=== PATIENT | female | born 1995 | race Two or more races ===

== ENCOUNTER 2022-12-13 03:20 | Emergency (ER) | payer SELFPAY ==
[~2022-12-13] VITALS: Ht 154.9 cm; Wt 73.0 kg
[2022-12-13 04:41] LABS: Basophils # (auto) 0.1 10 ^3/uL (0-0.2); Basophils % (auto) 0.8 % (0.0-2.0); Eosinophils # (auto) 0.3 10 ^3/uL (0-0.8); Eosinophils % (auto) 4.3 % (0.0-7.0); Hematocrit 39.4 % (36.0-46.0); Hemoglobin 13.6 g/dL (12.2-16.2); Lymphocytes % (auto) 27.5 % (10.0-50.0); Mean Corpuscular Hemoglobin 28.7 pg (28.0-32.0); Mean Corpuscular Hgb Conc. 34.6 g/dL (32.0-36.0); Monocytes # (auto) 0.5 10 ^3/uL (0-1.3); Monocytes % (auto) 6.4 % (0.0-12.0); Neutrophils # (auto) 4.5 10 ^3/uL (1.6-8.6); Nucleated Red Blood Cells % 0.1 %; Red Blood Cells 4.75 10^6/uL (4.0-5.20); Red Cell Distribution Width 13.3 % (11.8-14.3); White Blood Cell 7.3 10^3/uL (4.4-10.8)
[2022-12-13 04:51] LABS: Albumin 3.6 g/dL (3.4-5.0); Calcium 8.6 mg/dL (8.5-10.1); Potassium 3.9 mmol/L (3.5-5.1)
[2022-12-13 04:55] LABS: Bilirubin, Total 0.2 mg/dL (0.2-1.0); Total Protein 7.4 g/dL (6.4-8.2)
[2022-12-13 06:44] LABS: Urine Bacteria NONE SEEN /hpf (None Seen); Urine Blood Negative /uL (Negative); Urine Specific Gravity 1.022 (1.001-1.035); Urine WBC <1 /hpf (0 - 5)
[2022-12-13 07:57] VITALS: BP 110/73
== END 2022-12-13 08:00 | disposition home or self-care (01) ==
LOC: ER 03:20
DX: R10.11 Right upper quadrant pain (principal); R10.2 Pelvic and perineal pain
CPT/HCPCS: 36415; 74176; 80053; 81001; 83690; 84702; 85025

== ENCOUNTER 2024-05-22 13:36 | Emergency (ER) | payer MEDICAID ==
[~2024-05-22] VITALS: Ht 162.6 cm; Wt 72.4 kg
[2024-05-22 14:00] VITALS: BP 113/76; PULSE 78; RESP 18; O2SAT 97
[2024-05-22] MEDS ORDERED: NITR-87 PO (16:46)
[2024-05-22] MEDS: ONDANSETRON ODT 4 MG TAB PO ONE (18:46)
[2024-05-22] MEDS: cefTRIAXone SOD 1,000 MG VL IM ONE (18:46)
== END 2024-05-22 18:51 | disposition home or self-care (01) ==
LOC: ER 13:36
DX: N39.0 Urinary tract infection, site not specified (principal)
CPT/HCPCS: 96372; 99283; J0696; Q0162

== ENCOUNTER 2024-05-26 08:30 | Inpatient (IN) | payer MEDICAID ==
[~2024-05-26] VITALS: Ht 165.1 cm; Wt 75.2 kg
[~2024-05-26 08:30] MED LIST: NITR-87 PO
[2024-05-26 09:10] LABS: Basophils # (auto) 0.1 10 ^3/uL (0-0.2); Basophils % (auto) 0.8 % (0.0-2.0); Eosinophils # (auto) 0.3 10 ^3/uL (0-0.8); Eosinophils % (auto) 3.6 % (0.0-7.0); Hematocrit 42.2 % (36.0-46.0); Hemoglobin 14.1 g/dL (12.2-16.2); Lymphocytes # (auto) 1.9 10 ^3/uL (0.4-5.4); Lymphocytes % (auto) 20.9 % (10.0-50.0); Mean Corpuscular Hemoglobin 28.3 pg (28.0-32.0); Mean Corpuscular Hgb Conc. 33.5 g/dL (32.0-36.0); Mean Corpuscular Volume 84.6 fL (80.0-100.0); Monocytes # (auto) 0.4 10 ^3/uL (0-1.3); Monocytes % (auto) 4.6 % (0.0-12.0); Neutrophils # (auto) 6.5 10 ^3/uL (1.6-8.6); Neutrophils % (auto) 70.1 % (37.0-80.0); Platelet Count (auto) 228 10^3/uL (140-450); Red Blood Cells 4.99 10^6/uL (4.0-5.20); Red Cell Distribution Width 14.9 % (11.8-14.3); White Blood Cell 9.2 10^3/uL (4.4-10.8)
[2024-05-26 09:20] LABS: Chloride 107 mmol/L (98-107); Potassium 4.1 mmol/L (3.5-5.1); Sodium 140 mmol/L (136-145)
[2024-05-26 09:21] LABS: Anion Gap 8 (5-15); Calcium 9.6 mg/dL (8.7-10.4); Carbon Dioxide 25 mmol/L (20-31)
[2024-05-26 09:26] LABS: Blood Urea Nitrogen 8 mg/dL (9-23); Glucose 125 mg/dL (74-106); Lipase 43 U/L (12-53)
[2024-05-26 11:25] LABS: Urine Bacteria FEW /hpf (None Seen); Urine Blood Negative /uL (Negative); Urine Clarity Clear (Clear); Urine Color Light-Yellow (Yellow); Urine Protein, UAD Negative (Negative); Urine Specific Gravity 1.019 (1.001-1.035); Urine Urobilinogen Normal (Negative); Urine WBC 1 /hpf (0 - 5); Urine pH 5.5 (5.0-9.0)
[2024-05-26] MEDS: cefTRIAXone 1GM/50ML D5W 50 ML IV ONE (13:15)
[2024-05-26] MEDS: MORPHINE SULFATE 4 MG/ML SYR/VIAL IV ONE (13:15)
[2024-05-26] MEDS: ONDANSETRON HCL 4 MG/2 ML VIAL IV ONE (13:15)
[2024-05-26] MEDS ORDERED: MORPHINE SULFATE INJ 2 MG/ml SYRG IV PRN (13:45)
[2024-05-26] MEDS ORDERED: KETOROLAC TROMETH 30 MG/ML 1ML VIAL IV PRN (13:45)
[2024-05-26] MEDS ORDERED: SODIUM CHLORIDE 0.9% 1,000 ML IV SCH ×2 (13:45→14:00)
[2024-05-26 13:56] VITALS: BP 105/78; PULSE 68; RESP 16; TEMP 98.2; O2SAT 98
[2024-05-26] MEDS: D5W/SOD CHL 0.45%/KCL 20MEQ 1,000 ML IV ONE (14:15)
[2024-05-26 14:40] LABS: Alanine Aminotransferase 237 U/L (7-40); Alkaline Phosphatase 170 U/L (46-116); Anion Gap 9 (5-15); Aspartate Aminotransferase 59 U/L (13-40); BUN/Creatinine Ratio 11.3 (10.0-20.0); Blood Urea Nitrogen 8 mg/dL (9-23); Calcium 9.8 mg/dL (8.7-10.4); Carbon Dioxide 25 mmol/L (20-31); Chloride 107 mmol/L (98-107); Glucose 104 mg/dL (74-106); Potassium 4.5 mmol/L (3.5-5.1); Sodium 141 mmol/L (136-145)
[2024-05-26 14:41] LABS: Albumin 5.3 g/dL (3.2-4.8); Bilirubin, Total 0.5 mg/dL (0.2-1.0)
[2024-05-26 14:43] LABS: INR 0.95 (0.9-1.15); Prothrombin Time 10.1 sec (9.3-11.8)
[2024-05-26 15:36] VITALS: BP 105/78; PULSE 68; RESP 16; RESP 18; TEMP 98.2; O2SAT 98
[2024-05-26 17:00] VITALS: BP 100/56; PULSE 62; RESP 16; TEMP 98; O2SAT 98
[2024-05-26 21:22] VITALS: BP 102/53; PULSE 68; RESP 14; TEMP 98.2; O2SAT 98
[2024-05-26] MEDS: ceFAZolin 1GM/50ML 50 ML IV SCH (21:36)
[2024-05-27 00:21] VITALS: BP 99/51; PULSE 88; RESP 14; TEMP 98.3; O2SAT 97
[2024-05-27 04:48] VITALS: BP 96/47; PULSE 64; RESP 13; TEMP 97.6; O2SAT 64
[2024-05-27 06:23] LABS: Anion Gap 8 (5-15); Carbon Dioxide 24 mmol/L (20-31); Chloride 108 mmol/L (98-107); Potassium 3.6 mmol/L (3.5-5.1); Sodium 140 mmol/L (136-145)
[2024-05-27 06:24] LABS: Calcium 9.4 mg/dL (8.7-10.4)
[2024-05-27 06:29] LABS: Blood Urea Nitrogen 8 mg/dL (9-23); Glucose 98 mg/dL (74-106)
[2024-05-27 06:39] LABS: Basophils # (auto) 0 10 ^3/uL (0-0.2); Basophils % (auto) 0.8 % (0.0-2.0); Eosinophils # (auto) 0.2 10 ^3/uL (0-0.8); Eosinophils % (auto) 3.8 % (0.0-7.0); Hemoglobin 12.8 g/dL (12.2-16.2); Lymphocytes # (auto) 1.9 10 ^3/uL (0.4-5.4); Lymphocytes % (auto) 29.8 % (10.0-50.0); Mean Corpuscular Hemoglobin 28.2 pg (28.0-32.0); Mean Corpuscular Hgb Conc. 33.6 g/dL (32.0-36.0); Mean Corpuscular Volume 83.9 fL (80.0-100.0); Monocytes # (auto) 0.4 10 ^3/uL (0-1.3); Monocytes % (auto) 6.7 % (0.0-12.0); Neutrophils # (auto) 3.7 10 ^3/uL (1.6-8.6); Neutrophils % (auto) 58.9 % (37.0-80.0); Platelet Count (auto) 214 10^3/uL (140-450); Red Blood Cells 4.53 10^6/uL (4.0-5.20); White Blood Cell 6.3 10^3/uL (4.4-10.8)
[2024-05-27 09:00] VITALS: BP 91/43; PULSE 61; RESP 16; TEMP 97.9; O2SAT 97
[2024-05-27 13:00] VITALS: BP 109/57; PULSE 62; RESP 18; TEMP 97.9; O2SAT 97
[2024-05-27 16:42] VITALS: BP 110/64; PULSE 67; RESP 19; TEMP 98.4; O2SAT 97
[2024-05-27 21:00] VITALS: BP 107/56; PULSE 79; RESP 20; TEMP 98.6; O2SAT 96
[2024-05-28] VITALS (10 sets, daily range): BP systolic 91–125; BP diastolic 49–73; PULSE 63–89; RESP 14–20; TEMP 97.1–98.6; O2SAT 94–99
[2024-05-28 05:56] LABS: Basophils # (auto) 0.1 10 ^3/uL (0-0.2); Basophils % (auto) 0.8 % (0.0-2.0); Eosinophils # (auto) 0.2 10 ^3/uL (0-0.8); Eosinophils % (auto) 3.7 % (0.0-7.0); Hematocrit 39.1 % (36.0-46.0); Hemoglobin 13.4 g/dL (12.2-16.2); Lymphocytes # (auto) 1.9 10 ^3/uL (0.4-5.4); Lymphocytes % (auto) 30.1 % (10.0-50.0); Mean Corpuscular Hemoglobin 28.6 pg (28.0-32.0); Mean Corpuscular Hgb Conc. 34.1 g/dL (32.0-36.0); Mean Corpuscular Volume 83.7 fL (80.0-100.0); Monocytes # (auto) 0.4 10 ^3/uL (0-1.3); Monocytes % (auto) 5.7 % (0.0-12.0); Neutrophils # (auto) 3.8 10 ^3/uL (1.6-8.6); Neutrophils % (auto) 59.7 % (37.0-80.0); Nucleated Red Blood Cells % 0.1 %; Platelet Count (auto) 212 10^3/uL (140-450); Red Blood Cells 4.67 10^6/uL (4.0-5.20); Red Cell Distribution Width 14.7 % (11.8-14.3); White Blood Cell 6.3 10^3/uL (4.4-10.8)
[2024-05-28 05:58] LABS: Calcium 9.7 mg/dL (8.7-10.4); Chloride 106 mmol/L (98-107); Potassium 3.7 mmol/L (3.5-5.1); Sodium 140 mmol/L (136-145)
[2024-05-28 05:59] LABS: Anion Gap 11 (5-15); Carbon Dioxide 23 mmol/L (20-31)
[2024-05-28 06:04] LABS: BUN/Creatinine Ratio 16.2 (10.0-20.0); Blood Urea Nitrogen 12 mg/dL (9-23); Glucose 84 mg/dL (74-106)
[2024-05-28] MEDS: BUPIVACAINE HCL 0.25% P/F 10 ML VIAL ONE (08:32)
[2024-05-28] MEDS: LIDOCAINE W/ EPINEPHRINE 1% 20ML VIAL ONE (08:32)
[2024-05-28] MEDS ORDERED: NALOXONE HCL 0.4 MG/ML VIAL IV PRN (09:15)
[2024-05-28] MEDS ORDERED: MORPHINE SULFATE 4 MG/ML SYR/VIAL IV PRN ×2 (09:15)
[2024-05-28] MEDS: ONDANSETRON HCL 4 MG/2 ML VIAL IV ONE (09:15)
[2024-05-28] MEDS ORDERED: ePHEDrine SULFATE 50 MG/ML AMP IV PRN (09:15)
[2024-05-28] MEDS ORDERED: PROPOFOL 10 MG/ML 20 ML IV ONE (09:24)
[2024-05-28] MEDS ORDERED: ROCURONIUM 10MG/ML 10ML VIAL IV ONE (09:24)
[2024-05-28] MEDS ORDERED: MIDAZOLAM HCL 2MG/2ML 2ml VIAL (1mg/ml) ONE (09:46)
[2024-05-28] MEDS ORDERED: KETOROLAC TROMETH 30 MG/ML 1ML VIAL ONE (10:03)
[2024-05-28] MEDS ORDERED: HYDROmorphone HCL 2 MG/ML VL/or syr ONE (10:03)
[2024-05-28] MEDS ORDERED: ONDANSETRON HCL 4 MG/2 ML VIAL ONE (10:03)
[2024-05-28] MEDS ORDERED: METOCLOPRAMIDE HCL 5MG/ml INJ 2ml VIAL ONE (10:03)
[2024-05-28] MEDS ORDERED: fentaNYL CITRATE 5 ML ONE (10:43)
[2024-05-28] MEDS ORDERED: SUGAMMADEX 200mg/2ml Vial (100MG/ML) IV ONE (10:44)
[2024-05-28] MEDS ORDERED: HYDROmorphone HCL 2 MG/ML VL/or syr IV PRN (10:45)
[2024-05-28] MEDS ORDERED: ACETAMINOPHEN/CODEINE#3 (300/30mg) TAB PO PRN (10:45)
[2024-05-28] MEDS: metroNIDAZOLE 500MG/100ML 100 ML IV SCH (13:34)
[2024-05-28] MEDS: SOD CHL 0.45% WITH 20MEQ KCL 1,000 ML IV SCH (13:35)
[2024-05-28] MEDS: SODIUM CHLORIDE 0.9% 1,000 ML IV SCH ×2 (13:35→15:38)
[2024-05-28] MEDS: ONDANSETRON HCL 4 MG/2 ML VIAL IV PRN (14:32)
[2024-05-28] MEDS: MORPHINE SULFATE INJ 2 MG/ml SYRG IV PRN (14:32)
[2024-05-28] MEDS: ceFAZolin 2 GM/D5W50ml 50 ML IV SCH (15:13)
[2024-05-28] MEDS: LORazepam 2MG/ML-1ML VIAL IV PRN (15:38)
[2024-05-29] VITALS (7 sets, daily range): BP systolic 99–111; BP diastolic 47–63; PULSE 66–87; RESP 16–20; TEMP 36.6; O2SAT 94–98
[2024-05-29] MEDS: HYDROcodone-ACET 5/325MG TAB PO PRN (05:35)
[2024-05-29 07:32] LABS: Basophils # (auto) 0 10 ^3/uL (0-0.2); Basophils % (auto) 0.4 % (0.0-2.0); Eosinophils # (auto) 0.1 10 ^3/uL (0-0.8); Eosinophils % (auto) 0.8 % (0.0-7.0); Hematocrit 34.4 % (36.0-46.0); Hemoglobin 11.7 g/dL (12.2-16.2); Lymphocytes # (auto) 1.4 10 ^3/uL (0.4-5.4); Lymphocytes % (auto) 14.8 % (10.0-50.0); Mean Corpuscular Hemoglobin 28.5 pg (28.0-32.0); Mean Corpuscular Volume 83.9 fL (80.0-100.0); Monocytes # (auto) 0.7 10 ^3/uL (0-1.3); Monocytes % (auto) 6.8 % (0.0-12.0); Neutrophils # (auto) 7.5 10 ^3/uL (1.6-8.6); Neutrophils % (auto) 77.2 % (37.0-80.0); Platelet Count (auto) 195 10^3/uL (140-450); Red Cell Distribution Width 14.6 % (11.8-14.3); White Blood Cell 9.7 10^3/uL (4.4-10.8)
[2024-05-29] MEDS ORDERED: DOCU-94 PO (11:00)
[2024-05-29] MEDS ORDERED: ZOFR4T PO (11:00)
[2024-05-29] MEDS ORDERED: TRAM-626 PO (11:00)
[2024-05-29] MEDS ORDERED: CEPH500T PO (11:00)
[2024-05-29 12:40] LABS: Alanine Aminotransferase 151 U/L (7-40); Albumin 4.5 g/dL (3.2-4.8); Alkaline Phosphatase 167 U/L (46-116); Anion Gap 10 (5-15); Aspartate Aminotransferase 79 U/L (13-40); BUN/Creatinine Ratio 6.7 (10.0-20.0); Bilirubin, Total 0.4 mg/dL (0.2-1.0); Blood Urea Nitrogen 5 mg/dL (9-23); Calcium 9.2 mg/dL (8.7-10.4); Carbon Dioxide 21 mmol/L (20-31); Chloride 109 mmol/L (98-107); Glucose 120 mg/dL (74-106); Potassium 3.9 mmol/L (3.5-5.1); Sodium 140 mmol/L (136-145); Total Protein 6.9 g/dL (5.7-8.2)
== END 2024-05-29 19:10 | disposition home or self-care (01) | DRG 263 ==
LOC: ER 08:30 → OVERFLOW 13:56 → WEST WING 16:06
PROVIDERS: ADMIT Registered Nurse General Practice; ATTEND Internal Medicine
PROC: 0FT44ZZ Resection of Gallbladder, Percutaneous Endoscopic Approach (ICD-10-PCS; principal; 2024-05-28 09:48)
DX: K80.00 Calculus of gallbladder with acute cholecystitis without obstruction (principal); E66.9 Obesity, unspecified; K59.00 Constipation, unspecified; Z68.27 Body mass index [BMI] 27.0-27.9, adult; Z79.899 Other long term (current) drug therapy
CPT/HCPCS: 36415; 71045; 76705; 80048; 80053; 81001; 83690; 84702; 85025; 85610; 86850; 86900; 86901; G0378; J1885; J2250; J2405; J2704; J3490

== ENCOUNTER → 2024-06-12 | Outpatient (CLI) | payer MEDICAID ==
[~2024-06-12] MED LIST changes: +CEPH500T PO; +DOCU-94 PO; +TRAM-626 PO; +ZOFR4T PO
[2024-06-12 16:46] LABS: Alanine Aminotransferase 40 U/L (7-40); Triglycerides 266 mg/dL (< 150)
[2024-06-12 16:47] LABS: Aspartate Aminotransferase 19 U/L (13-40); Cholesterol 179 mg/dL (< 200); HDL Cholesterol 34 mg/dL (40-59); LDL Cholesterol 118 mg/dL (< 100)
== END | disposition home or self-care (01) ==
LOC: LAB 15:22
PROVIDERS: ATTEND Internal Medicine
DX: K76.0 Fatty (change of) liver, not elsewhere classified (principal); Z90.49 Acquired absence of other specified parts of digestive tract
CPT/HCPCS: 36415; 80061; 83036; 84439; 84443; 84450; 84460

== ENCOUNTER → 2024-06-15 | Outpatient (CLI) | payer MEDICAID ==
[2024-06-15 10:44] LABS: Basophils # (auto) 0.1 10 ^3/uL (0-0.2); Eosinophils # (auto) 0.7 10 ^3/uL (0-0.8); Hematocrit 39.8 % (36.0-46.0); Hemoglobin 13.5 g/dL (12.2-16.2); Lymphocytes # (auto) 1.8 10 ^3/uL (0.4-5.4); Lymphocytes % (auto) 21.3 % (10.0-50.0); Mean Corpuscular Hemoglobin 27.7 pg (28.0-32.0); Mean Corpuscular Hgb Conc. 33.9 g/dL (32.0-36.0); Mean Corpuscular Volume 81.8 fL (80.0-100.0); Monocytes # (auto) 0.5 10 ^3/uL (0-1.3); Monocytes % (auto) 5.6 % (0.0-12.0); Neutrophils # (auto) 5.2 10 ^3/uL (1.6-8.6); Neutrophils % (auto) 63.1 % (37.0-80.0); Nucleated Red Blood Cells % 0.1 %; Platelet Count (auto) 263 10^3/uL (140-450); Red Blood Cells 4.87 10^6/uL (4.0-5.20); Red Cell Distribution Width 14.2 % (11.8-14.3); White Blood Cell 8.3 10^3/uL (4.4-10.8)
[2024-06-15 11:32] LABS: Alanine Aminotransferase 42 U/L (7-40); Albumin 4.9 g/dL (3.2-4.8); Alkaline Phosphatase 111 U/L (46-116); Anion Gap 6 (5-15); Aspartate Aminotransferase 21 U/L (13-40); Bilirubin, Total 0.4 mg/dL (0.2-1.0); Blood Urea Nitrogen 9 mg/dL (9-23); Calcium 9.9 mg/dL (8.7-10.4); Carbon Dioxide 23 mmol/L (20-31); Chloride 110 mmol/L (98-107); Glucose 109 mg/dL (74-106); Potassium 4.1 mmol/L (3.5-5.1); Sodium 139 mmol/L (136-145); Total Protein 7.7 g/dL (5.7-8.2)
[2024-06-15 11:35] LABS: Free T4 (Free Thyroxine) 0.98 ng/dL (0.89-1.76); Thyroid Stimulating Hormone 2.57 uIU/mL (0.55-4.78)
[2024-06-15 11:36] LABS: Follicle Stimulating Hormone 5.02 IU/L (SEE BELOW)
[2024-06-15 11:37] LABS: Leuteinizing Hormone 4.6 IU/L; Prolactin 7.15 ng/mL (2.8-29.2)
[2024-06-15 11:38] LABS: Beta HCG, Quantitative 0.1 mIU/mL (1.5-4.2)
[2024-06-16 11:06] LABS: Estradiol 35.1 pg/mL (.)
[2024-06-20 20:06] LABS: Free Testosterone(Direct) 1.1 pg/mL (0.0-4.2)
== END | disposition home or self-care (01) ==
LOC: LAB 10:02
DX: K81.9 Cholecystitis, unspecified (principal); Z87.42 Personal history of other diseases of the female genital tract
CPT/HCPCS: 36415; 80053; 82670; 83001; 83002; 83036; 84146; 84402; 84403; 84439; 84443; 84702; 85025

== ENCOUNTER 2025-02-26 12:14 | Outpatient (CLI) | payer MEDICAID ==
[2025-02-26 12:34] LABS: Hemoglobin 14.7 g/dL (12.2-16.2)
[2025-02-26 12:39] LABS: Hematocrit 43.4 % (36.0-46.0); Mean Corpuscular Hemoglobin 27.9 pg (28.0-32.0); Mean Corpuscular Volume 82.5 fL (80.0-100.0); Nucleated Red Blood Cells % 0.1 %
[2025-02-26 13:22] LABS: Albumin 4.8 g/dL (3.2-4.8); Alkaline Phosphatase 107 U/L (46-116); Anion Gap 8 (5-15); BUN/Creatinine Ratio 9.9 (10.0-20.0); Calcium 10.0 mg/dL (8.7-10.4); Carbon Dioxide 27 mmol/L (20-31); Cholesterol 161 mg/dL (< 200); Glucose 101 mg/dL (74-106); Potassium 4.0 mmol/L (3.5-5.1); Sodium 142 mmol/L (136-145); Total Protein 7.3 g/dL (5.7-8.2)
[2025-02-26 13:23] LABS: Alanine Aminotransferase 72 U/L (7-40); Bilirubin, Total 0.5 mg/dL (0.2-1.0); Blood Urea Nitrogen 8 mg/dL (9-23); Chloride 107 mmol/L (98-107); HDL Cholesterol 26 mg/dL (40-59); Triglycerides 258 mg/dL (< 150)
[2025-02-26 13:35] LABS: Urine Protein, UAD Negative (Negative)
== END 2025-02-26 17:51 | disposition home or self-care (01) ==
LOC: LAB 12:14
PROVIDERS: ATTEND Internal Medicine
DX: K76.0 Fatty (change of) liver, not elsewhere classified (principal); R74.01 Elevation of levels of liver transaminase levels; R82.90 Unspecified abnormal findings in urine; Z00.01 Encounter for general adult medical examination with abnormal findings; Z83.3 Family history of diabetes mellitus
CPT/HCPCS: 36415; 80053; 80061; 81001; 83036; 84439; 84443; 85025

== ENCOUNTER 2025-03-05 09:52 | Outpatient (CLI) | payer MEDICAID ==
[2025-03-05 10:14] LABS: Hematocrit 41.5 % (36.0-46.0); Hemoglobin 13.9 g/dL (12.2-16.2); Mean Corpuscular Hemoglobin 27.9 pg (28.0-32.0); Mean Corpuscular Volume 82.9 fL (80.0-100.0); Nucleated Red Blood Cells % 0.1 %
== END 2025-03-05 17:00 | disposition home or self-care (01) ==
LOC: LAB 09:52
PROVIDERS: ATTEND Internal Medicine
DX: N39.0 Urinary tract infection, site not specified (principal); N92.0 Excessive and frequent menstruation with regular cycle
CPT/HCPCS: 36415; 85025; 87086

== ENCOUNTER 2025-03-12 09:47 | Outpatient (CLI) | payer MEDICAID ==
[2025-03-12 11:12] LABS: Beta HCG, Quantitative 0.4 mIU/mL (1.5-4.2)
[2025-03-12 11:13] LABS: Follicle Stimulating Hormone 5.51 IU/L (SEE BELOW)
[2025-03-12 11:16] LABS: Thyroid Stimulating Hormone 2.26 uIU/mL (0.55-4.78)
== END 2025-03-12 17:00 | disposition home or self-care (01) ==
LOC: LAB 09:47
PROVIDERS: ATTEND Obstetrics & Gynecology
DX: E28.2 Polycystic ovarian syndrome (principal); Z01.419 Encounter for gynecological examination (general) (routine) without abnormal findings; N89.8 Other specified noninflammatory disorders of vagina; Z79.899 Other long term (current) drug therapy
CPT/HCPCS: 36415; 82670; 83001; 83002; 83036; 84403; 84443; 84702

== ENCOUNTER 2025-04-30 23:58 | Emergency (ER) | payer MEDICAID ==
[~2025-04-30] VITALS: Ht 162.6 cm; Wt 77.2 kg
--- NOTE | 2025-05-01 01:43 | ED.PDOC ---
[facility] HPI Comments This is a 29 year-old female who presents to the ED with a chief complaint of spontaneous vaginal bleeding as of X3 months ago in January. Patient reports receiving the Depo-Provera shot via [facility] on 03/15 in attempt to alleviate symptoms. Pt states bleeding subdued for X1 week after the shot was given, but reports bleeding has returned since. Pt reports going through X5 super tampons daily while at work. Pt reports having a Pap-Smear done in May 2024, where it was identified as abnormal with malignancy noted. Pt denies having any STDs or further associated symptoms of dysuria, abdominal pain, N/V/D, fever, or chills at this time. No further complaints or modifying factors. Past Medical History: Fatty Liver Past Surgical History: Cholecystectomy Social History: Denies ETOH, smoking, and drug use. Medications: Tylenol Allergies: Tramadol Reyes: VagBleed HPI: Poor Historian. REVIEW OF SYSTEMS: CONSTITUTIONAL: Denies acute: fever, diaphoresis, chills, generalized weakness. HEAD: Denies acute: headache, photophobia Eyes: Denies acute: Double vision, vision loss, eye pain, eye discharge. EARS: Denies acute: tinnitus, hearing loss, ear discharge, ear pain, THROAT: Denies acute: sore throat, swelling, difficulty swallowing , pain with swallowing, change in voice. NECK: Denies acute: neck pain, neck swelling, stiff neck. HEART: Denies acute : chest pain, palpitations, LUNGS: Denies acute: SOB, wheezing, cough, hemoptysis ABDOMEN: Denies acute: abdominal pain, Nausea, Vomiting, diarrhea, melena , hematemesis, hematochezia SKIN: Denies acute: rash, redness, lesions, itchiness. EXTREMITIES: Denies acute: calf pain, numbness, tingling, weakness, denies pain in extremity. Denies acute: Low back pain. Neuro: Denies acute: focal neurological deficit, motor or sensory focal neurological deficit, tremors, seizure like activity, confusion, dizziness, change in mental status, loss of bowel or bladder function, cauda equina like symptoms. : Denies acute: dysuria, hematuria, flank pain, increase in urinary frequency. PSYCH: Denies acute: hallucination, suicidal ideation, homicidal ideation. FEMALE: Denies acute: foul odor, unusual discharge. PHYSICAL EXAM: General: ----no----acute distress, awake and alert. Head: normocephalic, atraumatic. Neck: supple, trachea is midline, no swelling. Throat: Normal phonation. Eyes:, no erythema, no purulent discharge, no proptosis, no icterus. Heart: regular rate, regular rhythm, no significant murmur appreciated. Lungs: no apparent respiratory distress, Able to speak in full sentences. No wheezing, no rhonchi, no crackles. No stridors Clear to auscultation bilaterally. Abdomen: non tender to palpation, non distended, soft, no guarding, no rebound, + bowel sounds. Neuro: Awake, Alert, oriented to name, self, situation, follows commands GCS=15. Speech is normal. Skin: no petechia, no purpura, no cyanosis, non-pale, not jaundice. Lower extremities: --no - Pitting edema no deformity, no focal swelling, no calf TTP. Makes eye contact. moves all four extremities. Face: no apparent facial droop. Ambulating in the ED independently. ED COURSE: DISCLAIMER: This medical document was created using an electronic medical record system with voice recognition software and computerized dictation system. Although this document has been carefully reviewed, there might still be some phonetic and typographical errors. Occasional wrong-word or "sound-alike" substitutions may have occurred due to the inherent limitations of voice recognition software. These areas are purely typographical due to imperfections of the software programs and do not reflect any compromise in the patient's medical care. Please read the chart carefully and recognize, using context, where these substitutions have occurred. Chief Complaint: Vaginal Bleed Time Seen by MD: 01:42 Reviewed Notes: Nurses Notes, Medications, Allergies Allergies: Coded Allergies: NO KNOWN ALLERGIES (Unverified , 12/13/22) Home Meds Active Scripts Tramadol HCl (Tramadol HCl) 50 Mg Tab, 50 MG PO TIDP PRN for 5 Days, #15 TAB Prov:CECIL CLEMENTE MD 05/29/24 Docusate Sodium (Colace) 100 Mg Cap, 1 CAP PO BID PRN for 15 Days, #40 CAP Prov:CECIL CLEMENTE MD 05/29/24 Ondansetron Odt 4MG Tab (ZOFRAN PO) 4 Mg Tb, 4 MG PO TIDP PRN for 7 Days, #21 TAB ODT TAB-DISSOLVE IN MOUTH, THEN SWALLOW Prov:CECIL CLEMENTE MD 05/29/24 Cephalexin Monohydrate (Cephalexin) 500 Mg Tab, 1 TAB PO TID for 7 Days, #21 TAB Prov:CECIL CLEMENTE MD 05/29/24 Nitrofurantoin Monohydrate Mac (Macrobid) 100 Mg Cap, 100 MG PO BID for 7 Days, #14 CAP Prov:ISRA GONZALEZ 05/22/24 Information Source: Patient Mode of Arrival: Ambulatory Timing: Months, Came on: Suddenly Severity: Moderate Onset Of Mass/Bleeding: Spontaneous Associated Signs and Symptoms: Vaginal Bleeding Physical Exam General Appearance: Other (per hpi) HEENT: Other (per hpi) Neck: Other (per hpi) Respiratory: Other (per hpi) Cardiovascular: Other (per hpi) Breast Exam: Other (per hpi) Gastrointestinal: Other Genitalia: Other (per hpi) Pelvic: Other (per hpi) Rectal: Other (per hpi) Extremities: Other (per hpi) Neurologic: Other Cerebellar Function: Other (per hpi) Reflexes: Other (per hpi) Skin: Other (per hpi) Lymphatic: Other (per hpi) Was a procedure done? Was a procedure done?: No Differential Diagnosis (FRUIT OR NUT [employer]ER) Vaginal Bleeding: - Complete, - Incomplete, - Inevitable, - Missed, - Threatened, Abruptio Placentae, Blood Loss Anemia, Cervicitis, Dysmenorrhea, Ectopic , Hormonal, Menorrhagia, Menometrorrhagia, Menstrual Bleeding, Myomatous Uterus, PID, Placenta Previa, Precipitous Hct, Trauma, UTI, Vaginitis, Other (Differential diagnosis includes but not limited to DU B, menorrhea, metromenorrhagia, neoplasm, coagulopathy,, trauma, miscarriage, placenta previa, placental abruption, ) Vaginal Discharge: X-Ray, Labs, Meds, VS Vital Signs Date Time Temp Pulse Resp B/P (MAP) Pulse Ox O2 Delivery O2 Flow Rate FiO2 05/01/25 02:32 99.7 107 18 122/85 (97) 98 99.7 05/01/25 00:01 97.7 105 18 127/77 97 97.7 Lab Test 05/01/25 02:19 05/01/25 01:40 Range/Units White Blood Count 5.1 4.4-10.8 10^3/uL Red Blood Count 4.57 4.0-5.20 10^6/uL Hemoglobin 13.2 12.2-16.2 g/dL Hematocrit 37.4 36.0-46.0 % Mean Corpuscular Volume 81.9 80.0-100.0 fL Mean Corpuscular Hemoglobin 28.9 28.0-32.0 pg Mean Corpuscular Hemoglobin Concent 35.2 32.0-36.0 g/dL Red Cell Distribution Width 13.6 11.8-14.3 % Platelet Count 173 140-450 10^3/uL Mean Platelet Volume 9.0 6.9-10.8 fL Neutrophils (%) (Auto) 67.1 37.0-80.0 % Lymphocytes (%) (Auto) 21.8 10.0-50.0 % Monocytes (%) (Auto) 7.9 0.0-12.0 % Eosinophils (%) (Auto) 2.2 0.0-7.0 % Basophils (%) (Auto) 1.0 0.0-2.0 % Neutrophils # (Auto) 3.4 1.6-8.6 10 ^3/uL Lymphocytes # (Auto) 1.1 0.4-5.4 10 ^3/uL Monocytes # (Auto) 0.4 0-1.3 10 ^3/uL Eosinophils # (Auto) 0.1 0-0.8 10 ^3/uL Basophils # (Auto) 0 0-0.2 10 ^3/uL Nucleated Red Blood Cells 0.1 % Sodium Level 140 136-145 mmol/L Potassium Level 3.7 3.5-5.1 mmol/L Chloride Level 108 H 98-107 mmol/L Carbon Dioxide Level 24 20-31 mmol/L Anion Gap 8 5-15 Blood Urea Nitrogen 10 9-23 mg/dL Creatinine 0.90 0.550-1.02 mg/dL Glomerular Filtration Rate Calc 90 >90 mL/min BUN/Creatinine Ratio 11.1 10.0-20.0 Serum Glucose 110 H 74-106 mg/dL Calcium Level 9.1 8.7-10.4 mg/dL Total Bilirubin 0.4 0.2-1.0 mg/dL Aspartate Amino Transferase (AST) 36 13-40 U/L Alanine Aminotransferase (ALT) 54 H 7-40 U/L Alkaline Phosphatase 98 46-116 U/L Total Protein 7.3 5.7-8.2 g/dL Albumin 4.7 3.2-4.8 g/dL Urine Color Light-yellow Yellow Urine Clarity Clear Clear Urine pH 6.0 5.0-9.0 Urine Specific [place] 1.022 1.001-1.035 Urine Protein Negative Negative Urine Ketones Negative Negative Urine Blood 1+ H Negative /uL Urine Nitrite Negative Negative Urine Bilirubin Negative Negative Urine Urobilinogen Normal Negative mg/dL Urine Leukocyte Esterase Negative Negative /uL Urine RBC None seen 0 - 4 /hpf Urine Microscopic WBC 2 0-5 /HPF Urine Squamous Epithelial Cells Few <5 /hpf Urine Bacteria None seen None Seen /hpf Urine Glucose Normal Normal mg/dL Urine Test Negative Negative Current Medications Medications (Trade) Dose Ordered Sig/Pasquale Route Start Time Stop Time Status Last Admin Sodium Chloride 1,000 ml @ 1,000 mls/hr Q1H ONCE IV 05/01/25 01:45 05/01/25 02:44 DC 05/01/25 02:37 [place] [id number] Ph: [phone] DIAGNOSTIC IMAGING Diagnostic Imaging Report : [id number] Signed PATIENT: ANITA REYES ACCT: [id number] UNIT: [id number] : 1995 LOC: ER ROOM / BED: / AGE / SEX: 29 / F ADM STATUS: REG ER SERVICE 0137 ORDERING PHYSICIAN: SILVIA FREEMAN DO PROCEDURE(s): PELUS - PELVIC REASON: vag bleed ORDER NUMBER(s): [id number], ACCESSION NUMBER(s): [id number] INDICATION: vag bleed TECHNIQUE: Multiple real-time grayscale transabdominal sonographic images along with color and duplex Doppler of the uterus and ovaries were obtained. COMPARISON: CT CT AB PEL WO CON-NO ORAL OR IV on DOS: 12/13/22 FINDINGS: The uterus measures 8.4 x 5.4 x 4.6 cm. The endometrial stripe measures 0.8 cm. No evidence of pelvic cul-de-sac free fluid. Right ovary measures 2.5 x 2.1 x 2.0 cm with normal Doppler color flow, containing an anechoic cyst measuring 0.5 x 0.5 x 0.4 cm. Left ovary measures 3.0 x 2.5 x 2.4 cm with normal Doppler color flow, containing an anechoic cyst measuring 0.5 x 0.5 x 0.4 cm. IMPRESSION: 1. Bilateral ovarian cysts. Otherwise unremarkable pelvic ultrasound. ATED BY: KILLIAN CORRAL MD DICTATED DATE/TIME: 05/01/25243 SIGNED BY: KILLIAN CORRAL MD SIGNED DATE/TIME: 05/01/25243 CC: Images Reviewed?: Images reviewed and evaluated by me Time of 1ST Reevaluation: 02:17 Reevaluation 1ST: Unchanged Patient Education/Counseling: Diagnosis, Treatment Family Education/Counseling: No Family Present Medical Screening: No EMC Exist At This Time Comments MDM: patient presented with the above HPI.--abnormal vaginal bleed----workup was initiated. patient was found with the above mentioned diagnosis. the following medications were ordered: please refer to order lists of meds and tests obtained by myself Dr. Freeman. Patient ED course and VS have been stabilized. Patient has been reassessed in the ED and remained in a stable condition. Pertinent incidental findings were discussed with the patient and/or family. Patient/family voices understanding and is agreeable with plan. Patient has been observed in the ED adequate length of time to insure improvement/stability. Escalation of care considered: Consideration of escalation to observation or admission Patient was DISCHARGED home in a stable condition. All the reports of any imaging studies that were ordered by myself were reviewed by myself. Departure 1 Departure Time of Disposition: 03:34 Impression: Primary Impression: Dysfunctional uterine bleeding Disposition: HOME / SELF CARE / HOMELESS Condition: Stable Additional Instructions: Additional instructions: Please read all instructions provided in this packet carefully. You MUST follow-up with your primary care/family doctor in 1 to 2 days. If you are unable to see your primary care/family doctor, please return to our emergency room for re-assessment and re-evaluation in 1 to 2 days. Return to the emergency room here in our facility or to the nearest ER [facility] if your symptoms change or worsen. CONSULTATIONS: you MUST Follow-up for consultation as soon as possible with: --OB Gyne doctor in 1-2 days. Please call for appointment. You MUST call the consultants office yourself to make an appointment. You may need to arrange that through your insurance and/or your primary/family doctor. If you are unable to see the nurse consultant in 1 to 2 days, you must return to our emergency room (or any other ER of your choice) for re-assessment and re- evaluation. Adequate fluid hydration. Although you have been discharged from the Emergency Department, this does not mean that you have a "clean bill of health". No definitive diagnosis for your symptoms has been made today. It is possible that you are in the process of developing a serious illness. This is why you must return to the ED without fail if any new or worsening symptoms develop. Absolute pelvic rest. Take daily iron supplements [id number] as instructed. Repeat CBC in 72 hours. Below is a copy of your radiological report for follow up: [place] [address] Ph: [phone] DIAGNOSTIC IMAGING Diagnostic Imaging Report : [id number] Signed PATIENT: ANITA REYES ACCT: [id number] UNIT: [id number] : 1995 LOC: ER ROOM / BED: / AGE / SEX: 29 / F ADM STATUS: REG ER SERVICE 0137 ORDERING PHYSICIAN: SILVIA FREEMAN DO PROCEDURE(s): PELUS - PELVIC REASON: vag bleed ORDER NUMBER(s): [id number], ACCESSION NUMBER(s): [id number] INDICATION: vag bleed TECHNIQUE: Multiple real-time grayscale transabdominal sonographic images along with color and duplex Doppler of the uterus and ovaries were obtained. COMPARISON: CT CT AB PEL WO CON-NO ORAL OR IV on DOS: 12/13/22 FINDINGS: The uterus measures 8.4 x 5.4 x 4.6 cm. The endometrial stripe measures 0.8 cm. No evidence of pelvic cul-de-sac free fluid. Right ovary measures 2.5 x 2.1 x 2.0 cm with normal Doppler color flow, containing an anechoic cyst measuring 0.5 x 0.5 x 0.4 cm. Left ovary measures 3.0 x 2.5 x 2.4 cm with normal Doppler color flow, containing an anechoic cyst measuring 0.5 x 0.5 x 0.4 cm. IMPRESSION: 1. Bilateral ovarian cysts. Otherwise unremarkable pelvic ultrasound. ATED BY: KILLIAN CORRAL MD DICTATED DATE/TIME: 05/01/25243 SIGNED BY: KILLIAN CORRAL MD SIGNED DATE/TIME: 05/01/25243 Discharged With: Self Critical Care Note Critical Care Time?: No Heart Score Heart Score: Heart Score Response (Comments) Value History N/A 0 EKG N/A 0 Age N/A 0 Risk Factors N/A 0 Troponin N/A 0 Total 0 I personally scribed for SILVIA FREEMAN DO ([email or web address]) on 05/01/25 at 01:43. Electronically submitted by Nimisha Gramajo ([email or web address]). I personally scribed for SILVIA FREEMAN J DO ([email or web address]) on 05/01/25 at 01:46. Electronically submitted by Nimisha rGamajo ([email or web address]). I personally scribed for SILVIA FREEMAN J DO ([email or web address]) on 05/01/25 at 01:58. Electronically submitted by Nimisha Gramajo ([employer]). I personally scribed for LYDIARACHIDE J DO ([email or web address]) on 05/01/25 at 02:15. Electronically submitted by Nimisha Gramajo ([employer]). I personally scribed for LYDIARACHIDE J DO ([email or web address]) on 05/01/25 at 03:25. Electronically submitted by Nimisha Gramajo ([employer]). I personally scribed for RACHID FREEMANE J DO ([email or web address]) on 05/01/25 at 03:42. Electronically submitted by Nimisha Gramajo ([employer]). I personally scribed for SILVIA FREEMAN DO ([email or web address]) on 05/01/25 at 03:49. Electronically submitted by Nimisha Gramajo ([facility]). SILVIA FREEMAN DO May 01, 2025 01:43
[2025-05-01 02:34] LABS: Hematocrit 37.4 % (36.0-46.0); Hemoglobin 13.2 g/dL (12.2-16.2); Mean Corpuscular Hemoglobin 28.9 pg (28.0-32.0); Mean Corpuscular Volume 81.9 fL (80.0-100.0); Nucleated Red Blood Cells % 0.1 %
[2025-05-01] MEDS: SODIUM CHLORIDE 0.9% 1,000 ML IV ONE (02:37)
[2025-05-01 02:47] LABS: Albumin 4.7 g/dL (3.2-4.8); Alkaline Phosphatase 98 U/L (46-116); Anion Gap 8 (5-15); BUN/Creatinine Ratio 11.1 (10.0-20.0); Blood Urea Nitrogen 10 mg/dL (9-23); Calcium 9.1 mg/dL (8.7-10.4); Carbon Dioxide 24 mmol/L (20-31); Potassium 3.7 mmol/L (3.5-5.1); Sodium 140 mmol/L (136-145); Total Protein 7.3 g/dL (5.7-8.2)
--- NOTE | 2025-05-01 02:47 | DVH ---
INDICATION: vag bleed TECHNIQUE: Multiple real-time grayscale transabdominal sonographic images along with color and duplex Doppler of the uterus and ovaries were obtained. COMPARISON: CT CT AB PEL WO CON-NO ORAL OR IV on DOS: 12/13/22 FINDINGS: The uterus measures 8.4 x 5.4 x 4.6 cm. The endometrial stripe measures 0.8 cm. No evidence of pelvic cul-de-sac free fluid. Right ovary measures 2.5 x 2.1 x 2.0 cm with normal Doppler color flow, containing an anechoic cyst m easuring 0.5 x 0.5 x 0.4 cm. Left ovary measures 3.0 x 2.5 x 2.4 cm with normal Doppler color flow, containing an anechoic cyst me asuring 0.5 x 0.5 x 0.4 cm. IMPRESSION: 1. Bilateral ovarian cysts. Otherwise unremarkable pelvic ultrasound.
[2025-05-01 02:48] LABS: Bilirubin, Total 0.4 mg/dL (0.2-1.0)
[2025-05-01 03:23] LABS: Alanine Aminotransferase 54 U/L (7-40); Chloride 108 mmol/L (98-107); Glucose 110 mg/dL (74-106)
[2025-05-01 04:40] LABS: Urine Protein, UAD Negative (Negative)
[2025-05-01 05:15] VITALS: BP 120/84; PULSE 95; RESP 18; TEMP 99.5; O2SAT 97; O2SAT 98
== END 2025-05-01 05:30 | disposition home or self-care (01) ==
LOC: ER 23:58
DX: N93.8 Other specified abnormal uterine and vaginal bleeding (principal); Z90.49 Acquired absence of other specified parts of digestive tract; Z88.5 Allergy status to narcotic agent; Z79.899 Other long term (current) drug therapy
CPT/HCPCS: 36415; 76830; 76856; 80053; 81001; 81025; 85025; 86850; 86900; 86901; 96360; 99284; J7030